=== PATIENT | male | born 1950 | race Hispanic/Latino ===

== ENCOUNTER 2018-09-18 11:19 | Outpatient (CLI) | payer MEDICARE, BC | END 2018-09-18 11:20 | disposition home or self-care (01) | LOC: LAB 11:19 ==

== ENCOUNTER 2018-09-23 12:08 | Inpatient (IN) | payer MEDICARE, BC ==
--- NOTE | 2018-09-23 12:53 | ED PDOC ---
Arrival/HPI - General Chief Complaint: Weakness/Neurological Deficit Historian: Patient - Critical Care Critical Care Minutes: 30 minutes - History of Present Illness Narrative History of Present Illness (Text): 09/23/18 12:40 67 year old male, whose past medical history includes HIV (dx 1991 CD4 1200, undetected Viral Load on medication), presents to the emergency department complaining of right sided weakness that began 18-20 hours ago. Patient states he was at a restaurant last night when he noticed that he was dragging his right foot. He reports he woke up this morning and the symptoms remained unchanged. Patient is having trouble getting words out. He reports he called his PMD who recommended patient to go to the ER for a CT. Patient denies any fever, chills, chest pain, shortness of breath, nausea, vomiting, diarrhea, urinary symptoms, back pain, neck pain, headache, dizziness, or any other complaints. PMD: Dr. Rueda Time/Duration: Other (18-20 hours ago) Symptom Onset: Sudden Symptom Course: Unchanged Activities at Onset: Light Context: Other (restaurant) Past Medical History - Provider Review Nursing Documentation Reviewed: Yes - Infectious Disease Hx of Infectious Diseases: None - Cardiac Hx Cardiac Disorders: No - Neurological Hx Neurological Disorder: No - Genitourinary/Gynecological Hx Genitourinary Disorders: No - Psychiatric Hx Substance Use: No - Anesthesia Hx Anesthesia Reactions: No Family/Social History - Physician Review Nursing Documentation Reviewed: Yes Family/Social History: CVA/TIA (Mother) Smoking Status: Current Some Days Smoker Hx Alcohol Use: Yes Frequency of alcohol use: Socially Hx Substance Use: No Allergies/Home Meds Allergies/Adverse Reactions: Allergies chocolate flavor Allergy (Verified 09/23/18 12:23) RASH food allegies tomato, Allergy (Uncoded 09/23/18 12:23) RASH nuts Allergy (Uncoded 09/23/18 12:23) RASH Home Medications: Home Meds Medication Instructions Recorded Confirmed Unobtainable 09/23/18 09/23/18 Review of Systems - Physician Review All systems were reviewed & negative as marked: Yes - Review of Systems Constitutional: absent: Fevers Respiratory: absent: SOB, Cough Gastrointestinal: absent: Abdominal Pain, Diarrhea, Nausea, Vomiting Genitourinary Male: absent: Dysuria, Frequency, Hematuria Musculoskeletal: absent: Back Pain, Neck Pain Neurological: Focal Weakness (right-sided), Gait Changes, Speech Changes. absent: Headache, Dizziness Physical Exam Vital Signs Reviewed: Yes Vital Signs Temp Pulse Resp Pulse Ox 09/23/18 12:16 97.5 F L 54 L 18 100 Temperature: Afebrile Blood Pressure: Normal Pulse: Bradycardic Respiratory Rate: Normal Appearance: Positive for: Well-Appearing, Non-Toxic, Comfortable Pain Distress: None Mental Status: Positive for: Alert and Oriented X 3 - Systems Exam Head: Present: Atraumatic, Normocephalic Pupils: Present: PERRL Extroacular Muscles: Present: EOMI Conjunctiva: Present: Normal Mouth: Present: Moist Mucous Membranes. No: Other (No thrush in mouth) Neck: Present: Normal Range of Motion Respiratory/Chest: Present: Clear to Auscultation, Good Air Exchange. No: Respiratory Distress, Accessory Muscle Use Cardiovascular: Present: Regular Rate and Rhythm, Normal S1, S2. No: Murmurs Abdomen: No: Tenderness, Distention, Peritoneal Signs Back: Present: Normal Inspection Upper Extremity: Present: Normal Inspection. No: Cyanosis, Edema Lower Extremity: Present: Normal Inspection. 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 No: Rashes Psychiatric: Present: Alert, Oriented x 3, Normal Insight, Normal Concentration Medical Decision Making ED Course and Treatment: 09/23/18 12:40 Impression: 67 year old male presents complaining of right-sided weakness, right sided gait change, and trouble talking that began 18-20 hours ago. Plan: -- Labs -- CTA Head/Neck Code stroke -- CT Head w/o contrast Code stroke -- EKG -- CXR -- IV Fluids -- Reassess and disposition Progress Notes: 09/23/18 12:46 Code stroke called. EXAM: Head CT w/o contrast Dictated by: Thierno Li MD Dictated Date/Time: 09/23/17 1309 IMPRESSION: No acute intracranial abnormalities. No significant findings to account for the clinical presentation. EXAM: CTA Head and Neck Code Stroke Dicatated by: Brigida Vivas MD Dictated Date/Time: 09/23/18 1345 IMPRESSION: 1. No evidence of endoluminal thrombus, occlusion or definite significant stenosis in the intracranial arteries. 2. No evidence of hemodynamically significant stenosis in the internal carotid arteries. 3. Patent bilateral vertebral arteries. 09/23/18 13:28 EKG shows Sinus Bradycardia at 54 BPM with LAD. Interpreted by me. 09/23/18 14:[address] Ford who recommends patient for MRI and Aspirin. Patient is not a candidate for TPA 09/23/18 16:03 Dr. Ford at bedside with patient for consult. He reports that the MRI of the brain without contrast is consistent with a left caudal pontine punctate infarct and diffuse subcortical white matter disease involving the brainstem as well. He ordered Aspirin and Plavix. 09/23/18 16:[address] Peres who is aware and agrees with the plan. Accepts patient into his service. - Critical Care Critical Care Minutes: 30 minutes - Lab Interpretations I have reviewed the lab results: Yes - RAD Interpretation Prospecting Driller: Radiologist - EKG Interpretation Interpreted by ED Physician: Yes Type: 12 lead EKG NIHSS Scale ([place]) Time Performed: 12:40 - How Severe is the Stoke Baseline Level of Consciousness: 0=Alert LOC to Questions: 0=Both comments correct LOC to commands: 0=Obeys both correctly Best Gaze: 0=Normal Visual: 0=No visual loss Facial: 1=Minor asymmetry Motor Arm - Left: 0=No drift Motor Arm - Right: 1=Drift noted before 10 sec Motor Leg - Left: 0=No drift Motor Leg - Right: 0=No drift Limb Ataxia: 0=Absent Sensory: 0=Normal Best Language: 0=No aphasia Dysarthia: 1=Mild to moderate slurring Extinction & Inattention (Neglect): 0=Normal, no object Score: 3 Risk Level: Minor Stroke Risk rTPA Inclusion/Exclusion - Refusal of Treatment Patient Refused Treatment: No - Inclusion Criteria for Altepase Patient is 18 years or Older: Yes The Clinical Diagnosis of Ischemic Stroke That is Causing a Potentially Disabling Neurological Deficit: Yes Time of Onset is Well Established to be Less Than 270 Minute Before Treatment Would Begin: No Risk/Benefit Discussed With Patient/Family Member Present: No - Scribe Statement The provider has reviewed the documentation as recorded by the Nino Paredes Provider Scribe Attestation: All medical record entries made by the Shakiribjed were at my direction and personally dictated by me. I have reviewed the chart and agree that the record accurately reflects my personal performance of the history, physical exam, medical decision making, and the department course for this patient. I have also personally directed, reviewed, and agree with the discharge instructions and disposition. Disposition/Present on Arrival - Present on Arrival Any Indicators Present on Arrival: No History of DVT/PE: No History of Uncontrolled Diabetes: No Urinary Catheter: No History of Decub. Ulcer: No History Surgical Site Infection Following: None - Disposition Have Diagnosis and Disposition been Completed?: Yes Diagnosis: Ischemic stroke Disposition: HOSPITALIZED Disposition Time: 14:00 Patient Problems: Current Active Problems Problem Status Onset Ischemic stroke Acute Condition: GUARDED
[2018-09-23] MEDS ORDERED: Iohexol 350 MG/100 ML VIAL ONE (12:57)
[2018-09-23 13:06] LABS: BASO # 0.05 K/mm3 (0.0-2.0); BASO % 0.8 % (0.0-3.0); EOS % 0.5 % (1.5-5.0); GRAN # 4.04 (1.4-6.5); GRAN % 66.7 % (50.0-68.0); LYMPH # 1.6 (1.2-3.4); LYMPH % 26.2 % (22.0-35.0); MEAN CELL VOLUME 115.8 fl (80.0-105.0); MEAN CORPUSCULAR HEMOGLOBIN 40.1 pg (25.0-35.0); MEAN CORPUSCULAR HGB CONC 34.6 g/dl (31.0-37.0); MEAN PLATELET VOLUME 9.7 fl (7.0-11.0); MONO # 0.4 (0.1-0.6); MONO % 5.8 % (1.0-6.0); RBC 3.74 10^6/uL (3.5-6.1); RED CELL DISTRIBUTION WIDTH 13.7 % (11.5-14.5); WHITE BLOOD COUNT 6.1 10^3/uL (4.5-11.0)
--- NOTE | 2018-09-23 13:13 | CT ---
Date of service: 09/23/2018 PROCEDURE: CT HEAD WITHOUT CONTRAST. HISTORY: Code Stroke - right side weakness COMPARISON: None available. TECHNIQUE: Axial computed tomography images were obtained through the head/brain without intravenous contrast. Supplemental Coronal and Sagittal projections created and reviewed. Radiation dose: Total exam DLP = 901.59 mGy-cm. This CT exam was performed using one or more of the following dose reduction techniques: Automated exposure control, adjustment of the mA and/or kV according to patient size, and/or use of iterative reconstruction technique. FINDINGS: HEMORRHAGE: No intracranial hemorrhage. BRAIN: No mass effect or edema. No atrophy or chronic microvascular ischemic changes. Prominent white matter common nonspecific finding but can be seen with demyelinating disease. VENTRICLES: Unremarkable. No hydrocephalus. CALVARIUM: Unremarkable. PARANASAL SINUSES: Unremarkable as visualized. No significant inflammatory changes. MASTOID AIR CELLS: Unremarkable as visualized. No inflammatory changes. OTHER FINDINGS: None. IMPRESSION: No acute intracranial abnormalities. No significant findings to account for the clinical presentation. Code stroke protocol: Study completed 12:59. Radiologist notified 13:03. Results conveyed verbally at 13:09. Interpretation finalized and available for review 13:10.
[2018-09-23 13:15] LABS: INR 1.14; PARTIAL THROMBOPLASTIN TIME 27.5 Seconds (25.1-36.5); PROTHROMBIN TIME 13.2 SECONDS (9.4-12.5)
[2018-09-23] MEDS: Sodium Chloride 0.9% 1,000 ML IV SCH (13:17)
[2018-09-23 13:18] LABS: ALB/GLOB RATIO 1.7 (1.1-1.8); ALBUMIN 4.1 g/dL (3.0-4.8); ALT/SGPT 39 U/L (7-56); AST/SGOT 29 U/L (17-59); BLOOD UREA NITROGEN 22 mg/dL (7-21); CALCIUM 9.6 mg/dL (8.4-10.5); GFR NON-AFRICAN AMERICAN > 60; HDL CHOLESTEROL 51 mg/dL (29-60)
[2018-09-23 13:30] LABS: LDL CHOLESTEROL 68 mg/dL (0-129)
[2018-09-23 13:32] LABS: TROPONIN I < 0.01 ng/mL
--- NOTE | 2018-09-23 13:49 | CT ---
Date of service: 09/23/2018 PROCEDURE: CTA HEAD AND NECK WITH CONTRAST HISTORY: right sided weakness COMPARISON: None available. TECHNIQUE: Initial noncontrast head CT was performed. Subsequently, CT angiogram of the head and neck were performed after the intravenous administration of 80 mL of Omnipaque 350. Contiguous 1.5mm thick images were obtained in the axial plane of the neck. 2-D coronal and sagittal MPR images were obtained. Imaging postprocessing was performed with 3-D images also obtained. A delayed contrast head CT was also obtained. This CT exam was performed using one or more of the following dose reduction techniques: Automated exposure control, adjustment of the mA and/or kV according to patient size, and/or use of iterative reconstruction technique. Contrast dose: 100 mL Omnipaque Radiation dose: Total exam DLP = 629.80 mGy-cm. FINDINGS: HEAD: Right: The intracranial internal carotid artery, and anterior and middle cerebral arteries are widely patent. Left: 300 The intracranial internal carotid artery, and anterior and middle cerebral arteries are widely patent. Posterior circulation: The visualized intracranial vertebral arteries, basilar artery and posterior cerebral arteries are widely patent. There is origin of the right posterior cerebral artery, an anatomic variant with There is no endoluminal filling defect to suggest thrombus. There is no intracranial saccular aneurysm. NECK: There is a three vessel aortic arch. There is no stenosis at the origins of the great vessels at the level of the aortic arch. No atherosclerotic calcification or mural plaque present. Right Carotid: On the right, the common carotid, internal carotid and external carotid arteries are widely patent. There is no hemodynamically significant stenosis in the internal carotid artery by NASCET criteria. Left Carotid: On the left, the common carotid, internal carotid and external carotid arteries are widely patent. There is no hemodynamically significant stenosis in the internal carotid artery by NASCET criteria. The vertebral arteries are widely patent. The right vertebral artery is hypoplastic, an anatomic variant. The visualized soft tissues of the neck are normal. The visualized brain and cervical spine are within normal limits. Centrilobular emphysema in the visualized lungs. Multinodular thyroid gland. Chronic left maxillary sinusitis and left maxillary atelectatic sinus syndrome. IMPRESSION: 1. No evidence of endoluminal thrombus,occlusion or definite significant stenosis in the intracranial arteries. 2. No evidence of hemodynamically significant stenosis in the internal carotid arteries. 3. Patent bilateral vertebral arteries.
--- NOTE | 2018-09-23 15:55 | CP.PCM.CON ---
History of Present Illness - History of Present Illness History of Present Illness: Neurology Consultation Note: Mr. Kelly is a 67-year-old man with a past medical history of HIV, who was at a restaurant yesterday and noticed that he had some right side weakness. He did not come to the ED till today and states that he continues to feel subjectively weaker on the right and was noted to have some speech difficulty. CT scan of the head did not show any acute findings, but there was significant chronic ischemic changes. CTA of the head/neck did not show any LVO. MRI of the brain without contrast is consistent with a left caudal pontine punctate infarct and diffuse subcortical white matter disease involving the brainstem as well. Review of Systems - Constitutional Constitutional: As Per HPI - EENT Eyes: absent: As Per HPI, Blind Spots, Blurred Vision, Change in Vision, Decreased Night Vision, Diplopia, Discharge, Dry Eye, Exophthalmos, Floaters, Irritation, Itchy Eyes, Loss of Peripheral Vision, Pain, Photophobia, Requires Corrective Lenses, Sees Flashes, Spots in Vision, Tunnel Vision, Other Visual Disturbances, Loss of Vision, Other Ears: absent: As Per HPI, Decreased Hearing, Ear Discharge, Ear Pain, Tinnitus, Abnormal Hearing, Disequilibrium, Dizziness, Other Nose/Mouth/Throat: absent: As Per HPI, Epistaxis, Nasal Congestion, Nasal Dis charge, Nasal Obstruction, Nasal Trauma, Nose Pain, Post Nasal Drip, Sinus Pain, Sinus Pressure, Bleeding Gums, Change in Voice, Dental Pain, Dry Mouth, Dysphagia, Halitosis, Hoarsness, Lip Swelling, Mouth Lesions, Mouth Pain, Odynophagia, Sore Throat, Throat Swelling, Tongue Swelling, Facial Pain, Neck Pain, Neck Mass, Other - Cardiovascular Cardiovascular: absent: As Per HPI, Acrocyanosis, Chest Pain, Chest Pain at Rest, Chest Pain with Activity, Claudication, Diaphoresis, Dyspnea, Dyspnea on Exertion, Edema, Irregular Heart Rhythm, Pain Radiating to Arm/Neck/Jaw, Leg Edema, Leg Ulcers, Lightheadedness, Orthopnea, Palpitations, Paroxysmal Nocturnal Dyspnea, Pedal Edema, Radiating Pain, Rapid Heart Rate, Slow Heart Rate, Syncope, Other - Respiratory Respiratory: absent: As Per HPI, Cough, Dyspnea, Hemoptysis, Dyspnea on Exertion, Wheezing, Snoring, Stridor, Pain on Inspiration, Chest Congestion, Excessive Mucous Production, Change in Mucous Color, Pain with Coughing, Other - Gastrointestinal Gastrointestinal: absent: As Per HPI, Abdominal Pain, Belching, Bloating, Change in Bowel Habits, Change in Stool Character, Coffee Ground Emesis, Constipation, Cramping, Diarrhea, Dyspepsia, Dysphagia, Early Satiety, Excessive Flatus, Fecal Incontinence, Heartburn, Hematemesis, Hematochezia, Loose Stools, Melena, Nausea, Odynophagia, Temesmus, Vomiting, Other - Genitourinary Genitourinary: absent: As Per HPI, Change in Urinary Stream, Difficulty Urinating, Dysuria, Flank Pain, Hematuria, Pyuria, Nocturia, Urinary Incontinence, Urinary Frequency, Urinary Hesitance, Urinary Urgency, Voiding Freq/Small Amts, Freq UTI, Hx Renal/Bladder Calculi, Hx /Renal Surgery, Bladder Distension, Other - Musculoskeletal Musculoskeletal: absent: As Per HPI, Abnormal Gait, Arthralgias, Atrophy, Back Pain, Deformity, Joint Swelling, Limited Range of Motion, Loss of Height, Muscle Cramps, Muscle Weakness, Myalgias, Neck Pain, Numbness, Radiating Pain into Limb, Stiffness, Tingling, Other - Neurological Neurological: As Per HPI - Psychiatric Psychiatric: absent: As Per HPI, Abnormal Sleep Pattern, Anhedonia, Anxiety, Auditory Hallucinations, Behavioral Changes, Change in Appetite, Change in Libido, Confusion, Depression, Difficulty Concentrating, Hallucinations, Homicidal Ideation, Hopelessness, Irritability, Memory Loss, Mood Swings, Panic Attacks, Paranoia, Suicidal Ideation, Visual Hallucinations, Tactile Halluci nations, Other - Endocrine Endocrine: absent: As Per HPI, Change in Body Appearance, Change in Libido, Cold Intolorance, Deepening of Voice, Excessive Sweating, Fatigue, Flushing, Heat Intolorance, Increase in Ring/Shoe/Hat Size, Palpitations, Polydipsia, Polyp hagia, Polyuria, Other - Hematologic/Lymphatic Hematologic: absent: As Per HPI, Easy Bleeding, Easy Bruising, Lymphadenopathy, Other Past Patient History - Infectious Disease Hx of Infectious Diseases: None - Past Social History Smoking Status: Current Some Days Smoker - CARDIAC Hx Cardiac Disorders: No - NEUROLOGICAL Hx Neurological Disorder: No - HEMATOLOGICAL/ONCOLOGICAL Hx Human Immunodeficiency Virus (HIV): Yes - GENITOURINARY/GYNECOLOGICAL Hx Genitourinary Disorders: No - PSYCHIATRIC Hx Substance Use: No - ANESTHESIA Hx Anesthesia Reactions: No Meds Allergies/Adverse Reactions: Allergies Allergy/AdvReac Type Severity Reaction Status Date / Time chocolate flavor Allergy RASH Verified 09/23/18 12:23 food allegies tomato, Allergy RASH Uncoded 09/23/18 12:23 nuts Allergy RASH Uncoded 09/23/18 12:23 - Medications Medications: Current Medications Aspirin (Ecotrin) 81 mg PO STAT STA Stop: 09/23/18 15:49 Sodium Chloride (Sodium Chloride 0.9%) 1,000 mls @ 100 mls/hr IV .Q10H DAPHNEY Last Admin: 09/23/18 13:17 Dose: 100 mls/hr Physical Exam - Constitutional Appears: Well - Head Exam Head Exam: ATRAUMATIC, NORMAL INSPECTION, NORMOCEPHALIC - Eye Exam Eye Exam: EOMI, Normal appearance, PERRL Pupil Exam: NORMAL ACCOMODATION, PERRL - ENT Exam ENT Exam: Mucous Membranes Moist, Normal Exam - Neck Exam Neck exam: Positive for: Normal Inspection - Respiratory Exam Respiratory Exam: Clear to Auscultation Bilateral, NORMAL BREATHING PATTERN - Cardiovascular Exam Cardiovascular Exam: REGULAR RHYTHM, +S1, +S2 - GI/Abdominal Exam GI & Abdominal Exam: Normal Bowel Sounds, Soft. absent: Tenderness - Rectal Exam Rectal Exam: Deferred - Extremities Exam Extremities exam: Positive for: normal inspection - Back Exam Back exam: NORMAL INSPECTION - Neurological Exam Neurological exam: Abnormal Gait, Alert, CN II-XII Intact, Oriented x3 Additional comments: Speech is dysarthric, right facial droop noted, right arm pronator drift noted, right leg slightly weaker than left. Sensation is intact throughout. Reflexes are brisk on the right. NIHSS = 3 - Psychiatric Exam Psychiatric exam: Normal Affect, Normal Mood - Skin Skin Exam: Dry, Intact, Normal Color, Warm Results - Vital Signs Recent Vital Signs: Last Vital Signs Temp 97.5 F L 09/23/18 12:16 Pulse 83 09/23/18 14:51 Resp 18 09/23/18 14:51 BP 126/75 09/23/18 14:51 Pulse Ox 98 09/23/18 14:51 - Labs Result Diagrams: 09/23/18 12:50 09/23/18 12:50 Labs: Laboratory Results - last 24 hr 01/08/3009/23/18 09/23/18 12:50 12:50 12:50 WBC 6.1 RBC 3.74 Hgb 15.0 Hct 43.3 MCV 115.8 H MCH 40.1 H MCHC 34.6 RDW 13.7 Plt Count 203 MPV 9.7 Gran % 66.7 Lymph % (Auto) 26.2 Butts % (Auto) 5.8 Eos % (Auto) 0.5 L Baso % (Auto) 0.8 Gran # 4.04 Lymph # (Auto) 1.6 Butts # (Auto) 0.4 Eos # (Auto) 0.0 Baso # (Auto) 0.05 PT 13.2 H INR 1.14 APTT 27.5 Sodium 142 Potassium 4.6 Chloride 109 H Carbon Dioxide 29 Anion Gap 9 L BUN 22 H Creatinine 0.7 L Est GFR ( Amer) > 60 Est GFR (Non-Af Amer) > 60 POC Glucose (mg/dL) Random Glucose 102 Calcium 9.6 Total Bilirubin 0.8 AST 29 ALT 39 Alkaline Phosphatase 102 Troponin I < 0.01 Total Protein 6.5 Albumin 4.1 Globulin 2.4 Albumin/Globulin Ratio 1.7 Triglycerides 110 Cholesterol 147 LDL Cholesterol Direct 68 HDL Cholesterol 51 Blood Type Antibody Screen BBK History Checked 09/23/18 09/23/18 12:51 13:22 WBC RBC Hgb Hct MCV MCH MCHC RDW Plt Count MPV Gran % Lymph % (Auto) Butts % (Auto) Eos % (Auto) Baso % (Auto) Gran # Lymph # (Auto) Butts # (Auto) Eos # (Auto) Baso # (Auto) PT INR APTT Sodium Potassium Chloride Carbon Dioxide Anion Gap BUN Creatinine Est GFR ( Amer) Est GFR (Non-Af Amer) POC Glucose (mg/dL) 90 Random Glucose Calcium Total Bilirubin AST ALT Alkaline Phosphatase Troponin I Total Protein Albumin Globulin Albumin/Globulin Ratio Triglycerides Cholesterol LDL Cholesterol Direct HDL Cholesterol Blood Type A POSITIVE Antibody Screen Negative BBK History Checked No verified bt Assessment & Plan (1) Ischemic stroke Assessment and Plan: The patient is not a candidate for IV tPA due to being well outside the 4.5 hour time window. He will require admission for further work-up and management. I recommend the followin. Telemetry 2. Echocardiogram 3. Carotid Dopplers 4. Aspirin 81 mg now, Plavix 300 mg now; and, continue aspirin 81 mg daily and Plavix 75 mg daily for 21 days, then continue only Aspirin 81 mg indefinitely, Lipitor 40 mg daily 5. Fluids with NS at 100 ml/hr 6. Permissive HTN (only treat BP higher than 220/110 mm Hg for the next 24 hours) 7. PT/OT eval and treatment 8. Check HbA1c, lipid panel, B12, folate, TSH, T3/4, homocysteine level, ESR, C RP, vitamin D level 9. Risk factor modification 10. Case management consult Thank you for this consultation. Status: Acute
--- NOTE | 2018-09-23 16:07 | RAD ---
Date of service: 09/23/2018 HISTORY: Code Stroke COMPARISON: 09/18/2018. FINDINGS: LUNGS: No active pulmonary disease. PLEURA: No significant pleural effusion identified, no pneumothorax apparent. CARDIOVASCULAR: No atherosclerotic calcification present Normal. OSSEOUS STRUCTURES: No significant abnormalities. VISUALIZED UPPER ABDOMEN: Normal. OTHER FINDINGS: None. IMPRESSION: No active disease. No significant interval change compared to the prior examination(s).
--- NOTE | 2018-09-23 16:53 | MRI ---
Date of service: 09/23/2018 PROCEDURE: MRI BRAIN WITHOUT CONTRAST HISTORY: right-sided weakness - LE>UE COMPARISON: None available. TECHNIQUE: Multiplanar, multisequence MR images of the brain were obtained without intravenous contrast enhancement. FINDINGS: HEMORRHAGE: None DWI: A punctate acute or subacute infarct is identified at the inferior left dustin. No lobar brain infarction appreciated throughout the brain nevertheless. BRAIN PARENCHYMA: Good corticomedullary differentiation is seen. Proportional, diffuse expansion of the ventriculosulcal and cisternal spaces is appreciated with expansive white matter lucency compatible with diffuse cerebral atrophy and gross chronic microangiopathy. Microangiopathy reveals relatively prominent at the dustin as well. No suspicious extra-axial fluid collection is identified and the midline brain anatomy appears grossly nonfocal as imaged. There is no mass effect throughout. VENTRICLES: Unremarkable. No hydrocephalus. CRANIUM: Unremarkable. ORBITS: Grossly unremarkable. PARANASAL SINUSES/MASTOIDS: Clear VASCULAR SYSTEM: Skull base flow voids intact. OTHER FINDINGS: None. IMPRESSION: A small acute or subacute infarct in the left cortical spinal tracts of the inferior dustin identified accounting for the patient's right sided weakness. No lobar brain infarction appreciable. Advanced age related neuro degenerative findings including for the patient's stated age of 67 years.
--- NOTE | 2018-09-23 20:27 | CARD ---
APPROVED REPORT Date of service: 09/23/2018 EKG Measurement Heart [id number] <Conclusion> Sinus bradycardia Otherwise normal ECG
[2018-09-23 22:35] VITALS: BMI 20.5
[2018-09-23] MEDS ORDERED: Pneumococcal 23-Valent Vaccine IM ONE (22:35)
[2018-09-23] MEDS ORDERED: Influenza Vaccine 60 mcg/0.5 mL SYR (4YR UP) IM ONE (22:35)
[2018-09-24] MEDS: Sodium Chloride 0.9% 1,000 ML IV SCH ×4 (05:26→20:54)
--- NOTE | 2018-09-24 12:08 | PCM.STROKE ---
Interval History Stroke Date: 09/22/18 - Treatment Antiplatelet: Acetylsalicylic acid (ASA), Plavix - Education Written Stroke Education provided regarding: personal risk factors, stroke warning sign/symptoms, how to activate emergency medical services, need to follow up after discharge Hx Atrial Fibrillation: No Hx Atrial Flutter: No NIHSS Stroke Scale - Date/Time Evaluation Performed Date Performed: 09/23/18 Time Performed: 19:23 When Was NIHSS Performed: Re-evaluation - How Severe is the Stroke Level of Consciousness: 0=Alert LOC to Questions: 0=Both comments correct LOC to commands: 0=Obeys both correctly Best Gaze: 0=Normal Visual: 0=No visual loss Facial: 1=Minor asymmetry Motor Arm - Left: 1=Drift noted before 10 sec Motor Arm - Right: 0=No drift Motor Leg - Left: 0=No drift Motor Leg - Right: 0=No drift Limb Ataxia: 0=Absent Sensory: 0=Normal Best Language: 0=No aphasia Dysarthia: 1=Mild to moderate slurring Extinction & Inattention (Neglect): 0=Normal, no object Score: 3 Exam - Vital Sign Vital Signs: Temp Pulse Resp BP Pulse Ox 97.7 F 58 L 19 134/81 97 09/24/18 05:53 09/24/18 05:53 09/24/18 05:53 09/24/18 05:53 09/24/18 05:53 Constitutional: No distress Ophthalmoscopic: absent: papilledema, hemorrhage Right Pupil: Reactive Left Pupil: Reactive Cardiovascular: Regular rate & rhythm Mental Status: Normal: Orientation, Memory, Attention, Language Cranial Nerve: Normal: Visual Eastman, Extraocular movement intact, Facial Sensation, Facial Strength, Hearing, Palate/Tongue Movement, Shoulder Strength Motor: Tone, Bulk Neuro motor strength exam: Left Upper Extremity: 4, Right Upper Extremity: 5, Left Lower Extremity: 4, Right Lower Extremity: 5 Sensation: Intact to pin, Vibration DTR: Achilles Tendon Left: 2+, Achilles Tendon Right: 2+, Bicep Left: 2+, Bicep Right: 2+, Brachioradialis Left: 2+, Brachioradialis Right: 2+, Patellar Left: 2+, Patellar Right: 2+, Tricep Left: 2+, Tricep Right: 2+ Flexor Plantar Reflex: Normal Coordination: Finger/nose, Heel/[place] Gait: Normal with Absent Rhomberg Vascular Risk: Hypertension, Age, Smoking - Data reviewed Laboratory results: 09/23/18 12:50 09/23/18 12:50 Triglycerides 110 mg/dL (35-160) 09/23/18 12:50 Cholesterol 147 mg/dL (130-200) 09/23/18 12:50 LDL Cholesterol Direct 68 mg/dL (0-129) 09/23/18 12:50 HDL Cholesterol 51 mg/dL (29-60) 09/23/18 12:50 Hemoglobin A1c 4.9 % (4.2-6.5) 09/23/18 12:50 CT Scan: Viewed and interpreted by me MRI images: Viewed and interpreted by me MRA/CTA images: Viewed and interpreted by me Assessment and Plan (1) Ischemic stroke Assessment & Plan: Will continue aspirin/plavix for 21 days, then continue only aspirin 81 mg daily along with lipitor 40 mg daily. Smoking cessation was discussed. If cleared by PT, the patient can follow up with outpatient neurology and primary care. Status: Acute
--- NOTE | 2018-09-25 00:21 | HP ---
DATE OF EXAM: 09/24/2018 The patient came in because has some right-sided weakness in his leg. HISTORY OF PRESENT ILLNESS: A 67-year-old male with history of HIV. He is being controlled on medication, came in today with sudden onset of some right leg weakness since morning it was more than 3 hours timing with speech difficulty and right-sided weakness. The patient was evaluated. He did have a CT of the head, which shows no bleeding. There was chronic ischemic changes; however, the CTA of the head and neck was negative also. MRI shows consistent left pontine infarction with diffuse subcortical white matter disease involving the brain stem. ALLERGIES: THE PATIENT IS ALLERGIC TO CHOCOLATE, EGG. FOOD ALLERGIES ARE NUTS AND TOMATOES. MEDICATIONS: He takes HIV medication that is being given by his Infectious Disease specialist. FAMILY HISTORY: Noncontributory. SOCIAL HISTORY: He lives by himself. He smokes 1 pack of cigarette from 50 years and he does not want to quit. He drink 1 or 2 glasses of red wine everyday. PHYSICAL EXAMINATION GENERAL: The patient is lying in bed. He is alert, awake, and oriented x3. Seems moving all extremities. He started drinking some liquids with no difficulties. VITAL SIGNS: As follows. Temperature 97.1, heart rate 58, blood pressure 130/91, respirations 20. HEAD AND NECK: Normal. No JVD. No thyromegaly. CHEST: Clear bilaterally. CARDIAC: First sound and second sound normal. No murmur, rubs or gallop. ABDOMEN: Soft and nontender. NEUROLOGIC: There is no weakness except the patient complained of right-sided weakness. His speech is little bit muffled. LABORATORY DATA: White count 6.1, hemoglobin 16, hematocrit 43.3, and platelets 203. Chemistry: Sodium 142, potassium 4.6, chloride 109, bicarb 29, BUN is 22, creatinine 0.7. Liver function test is normal. Troponin is negative. Triglycerides 110, cholesterol 147, LDL 68, HDL 51. The patient also had a C-reactive protein, which is less than 5. Hemoglobin A1c 4.9. IMPRESSION AND PLAN: 1. Acute cerebrovascular accident, acute infarction from pontine infarctions, seen by Dr. Yovani Ford, who recommended giving aspirin, Plavix 300 followed by 75 mg daily. We will continue that regimen. We will follow up with him. 2. The patient is a heavy smoker from years and need to be evaluated for that and I did recommend to stop smoking because the risk of stroke, recurrent stroke is high, but he does not want, so we will give a Nicoderm patch at least in the hospital and we will follow up with the patient if he agrees to discontinue smoking as an outpatient. 3. The patient does have a history of drinking alcohol 1 or 2 a day in a week. He usually 11 to 14 drinks, but he never had any withdrawal symptoms. We will monitor his mental status, any withdrawal symptoms. We are going to him thiamine and we will follow up clinically. 4. Human immunodeficiency virus. We will get Infectious Disease consult, Dr. Marie to follow up with that. We are not going to give any medicine at this time and we will continue to follow. The patient is also going to get physical therapy. Continue gastrointestinal and deep venous thrombosis prophylaxis. Reilly Peres MD
[2018-09-25] MEDS: Sodium Chloride 0.9% 1,000 ML IV SCH (05:36)
[2018-09-25 05:48] VITALS: O2SAT 97
--- NOTE | 2018-09-25 09:06 | CON ---
DATE: 09/24/2018 HISTORY OF PRESENT ILLNESS: This is 67-year-old male with positive HIV since 1990 with good T cells of over 1000, undetectable, followed by Dr. Ismael Rueda with [facility] who has seen Dr. Rueda with complaint of right-sided weakness and the patient because he lives in [place], was advised to come to the [place] [facility] by Dr. Rueda for further evaluation. Dr. Purvis had seen the patient in the emergency room and the patient had MRI of the brain which revealed the left caudal pontine punctate infarct corresponding to patient's slurred speech and right-sided weakness and the patient with positive HIV. The patient denies any fevers and chills at home and the patient was perfectly fine until this episode. No headaches. No abdominal pain, diarrhea or constipation. PAST MEDICAL HISTORY: The patient has had past medical history of positive HIV since 1990. He takes 3 different medications, he cannot remember the name of the medications at this time for his HIV, has been compliant with his medication. SOCIAL HISTORY: He is retired. He lives with his significant partner and there has been no exposure. No travel. No tuberculosis. He has had some poor dentition issues and following a dentist and he continues to actively smoke. PHYSICAL EXAMINATION: VITAL SIGNS: The patient is in bed with a temperature of 98, blood pressure is 105/60, respiratory rate of 19 and heart rate of 54. HEENT: Unremarkable. There is a cavity in one tooth. NECK: Supple. LUNGS: Decreased breath sounds. HEART: Normal S1 and S2. ABDOMEN: Soft and nontender. LABORATORY EXAMINATION: Reveals a white count of 6.1 and hemoglobin of 15, sed rate 5. Coagulation is noted. Chemistries are noted. Creatinine is normal. C-reactive protein is less than 5. Microbiology is pending and MRI is noted. Chest x-ray is reported to be negative. ASSESSMENT AND PLAN: This is a 67-year-old who on exam does have 4/5 in the right extremities, left extremities 5/5. There is slurred speech. 1. Positive human immunodeficiency virus with a patient with an acute left caudal pontine punctate infarct and recommend to continue taking his human immunodeficiency virus medications. I doubt this to be related to human immunodeficiency virus since his viral load has been undetectable with good T-cells as per my discussion with Dr. Ismael Rueda and I ordered blood cultures. I doubt endocarditis; however, he does have poor dentition and the presentation is acute. He did not have any fevers at home; however, we will check on the blood cultures. We will check on her RPR and an FTA and we will make further recommendations and we will follow closely with you. Henok Marie MD
[2018-09-25 11:55] VITALS: BP 133/87; PULSE 63; RESP 18; TEMP 97.8
--- NOTE | 2018-09-25 13:27 | CP.PCM.APN ---
Subjective - Date & Time of Evaluation Date of Evaluation: 09/25/18 Time of Evaluation: 09:15 - Subjective Subjective: pt seenand examined at bedside pt in NAD Pt reports right sided weakness continues but improvement from initial presentation Review of Systems - Constitutional Constitutional: Weakness. absent: As Per HPI, Anorexia, Chills, Daytime Sleepiness, Excessive Sweating, Fatigue, Fever, Frequent Falls, Headache, Increased Appetite, Lethargy, Malaise, Night Sweats, Snoring, Sleep Apnea, Weight Gain, Weight Loss, Other Additional comments: right side - EENT Eyes: absent: As Per HPI, Blind Spots, Blurred Vision, Change in Vision, Decreased Night Vision, Diplopia, Discharge, Dry Eye, Exophthalmos, Floaters, Irritation, Itchy Eyes, Loss of Peripheral Vision, Pain, Photophobia, Requires Corrective Lenses, Sees Flashes, Spots in Vision, Tunnel Vision, Other Visual Disturbances, Loss of Vision, Other Nose/Mouth/Throat: absent: As Per HPI, Epistaxis, Nasal Congestion, Nasal Disch arge, Nasal Obstruction, Nasal Trauma, Nose Pain, Post Nasal Drip, Sinus Pain, Sinus Pressure, Bleeding Gums, Change in Voice, Dental Pain, Dry Mouth, Dysphagia, Halitosis, Hoarsness, Lip Swelling, Mouth Lesions, Mouth Pain, Odynophagia, Sore Throat, Throat Swelling, Tongue Swelling, Facial Pain, Neck Pain, Neck Mass, Other - Musculoskeletal Musculoskeletal: Abnormal Gait Objective - Vital Signs/Intake and Output Vital Signs (last 24 hours): Temp Pulse Resp BP Pulse Ox 97.8 F 63 18 133/87 97 09/25/18 11:54 09/25/18 11:54 09/25/18 11:54 09/25/18 11:54 09/25/18 10:00 Intake and Output: 09/25/18 09/25/18 06:59 18:59 Intake Total 1400 Output Total 1300 Balance 100 - Medications Medications: Current Medications Aspirin (Ecotrin) 81 mg PO DAILY [facility] Last Admin: 09/25/18 09:51 Dose: 81 mg Atorvastatin Calcium (Lipitor) 40 mg PO DIN [facility] Last Admin: 09/24/18 17:36 Dose: 40 mg Clopidogrel Bisulfate (Plavix) 75 mg PO DAILY [facility] Last Admin: 09/25/18 09:51 Dose: 75 mg Heparin Sodium (Porcine) (Heparin) 5,000 units SC Q12 DAPHNEY; Protocol Last Admin: 09/25/18 09:51 Dose: 5,000 units Sodium Chloride (Sodium Chloride 0.9%) 1,000 mls @ 100 mls/hr IV .Q10H [facility]APH[facility] Last Admin: 09/25/18 05:36 Dose: 100 mls/hr Nicotine (Nicoderm Cq) 1 patch TD DAILY [facility] Last Admin: 09/25/18 09:51 Dose: 1 patch - Labs Labs: 09/23/18 12:50 09/23/18 12:50 PT 13.2 SECONDS (9.4-12.5) H 09/23/18 12:50 INR 1.14 09/23/18 12:50 APTT 27.5 Seconds (25.1-36.5) 09/23/18 12:50 - Constitutional Appears: No Acute Distress - Eye Exam Pupil Exam: NORMAL ACCOMODATION, PERRL - ENT Exam ENT Exam: Mucous Membranes Moist - Neck Exam Neck Exam: Full ROM - Respiratory Exam Respiratory Exam: Clear to Ausculation Bilateral, NORMAL BREATHING PATTERN - Cardiovascular Exam Cardiovascular Exam: REGULAR RHYTHM, +S1, +S2 - GI/Abdominal Exam GI & Abdominal Exam: Soft, Normal Bowel Sounds - Extremities Exam Extremities Exam: Normal Capillary Refill - Neurological Exam Neurological Exam: Abnormal Gait (right sided weakness upper and right lower ext ), Alert, Awake - Skin Skin Exam: Dry, Intact Assessment and Plan - Assessment and Plan (Free Text) Plan: ITS Impressions Chest X-Ray 09/23/18 12:50 IMPRESSION: No active disease. No significant interval change compared to the prior examination(s). Head CT 09/23/18 12:50 IMPRESSION: No acute intracranial abnormalities. No significant findings to account for the clinical presentation. Code stroke protocol: Study completed 12:59. Radiologist notified 13:03. Results conveyed verbally at 13:09. Interpretation finalized and available for review 13:10. Head/Neck CTA 09/23/18 12:51 IMPRESSION: 1. No evidence of endoluminal thrombus,occlusion or definite significant stenosis in the intracranial arteries. 2. No evidence of hemodynamically significant stenosis in the internal carotid arteries. 3. Patent bilateral vertebral arteries. Brain MRI 09/23/18 14:11 IMPRESSION: A small acute or subacute infarct in the left cortical spinal tracts of the inferior dustin identified accounting for the patient's right sided weakness. No lobar brain infarction appreciable. Advanced age related neuro degenerative findings including for the patient's stated age of 67 years. 67 yr old white male with pmh sig for smoking and HIV positive presented to ER with right sided weakness 18 to 20 hrs after initial symptoms began. Pt was a code stroke In ER and workup revealed a positive MRi with small acute or subacute infarct in the left cortical spinal tracts of the inferior dustin for which pt was admitted and undergoing neuro eval and treatment. acute cva aspirin , statin, antiplatelet therapy withj plavix neuro consultation and recs noted p>T eval recs - outpt pt Smoker nicotine patch in place smoking cessation encourage Hx hIV ID consultation noted RPR nonreactive Discuss plan with PMD RX given for outpt p.t services BPCI/TIC - BPCIA/TIC Educated pt/family on BPCIA/CIR/Med to Bed Programs: N/A Flyers given, including [facility] Beneficiary letter: N/A Pt/family verbalized understanding & agreed to program: N/A
--- NOTE | 2018-09-25 17:09 | CP.PCM.PN ---
Subjective - Date & Time of Evaluation Date of Evaluation: 09/25/18 Time of Evaluation: 10:25 - Subjective Subjective: No headache, able to walk well, no fevers, no confusion. Objective - Vital Signs/Intake and Output Vital Signs (last 24 hours): Temp Pulse Resp BP Pulse Ox 97.8 F 63 18 133/87 97 09/25/18 11:54 09/25/18 11:54 09/25/18 11:54 09/25/18 11:54 09/25/18 10:00 Intake and Output: 09/25/18 09/25/18 06:59 18:59 Intake Total 1400 600 Output Total 1300 Balance 100 600 - Labs Labs: 09/23/18 12:50 09/23/18 12:50 PT 13.2 SECONDS (9.4-12.5) H 09/23/18 12:50 INR 1.14 09/23/18 12:50 APTT 27.5 Seconds (25.1-36.5) 09/23/18 12:50 - Constitutional Appears: No Acute Distress, Chronically Ill - Head Exam Head Exam: NORMAL INSPECTION - Respiratory Exam Respiratory Exam: Decreased Breath Sounds. absent: Rales - Cardiovascular Exam Cardiovascular Exam: +S1, +S2 - GI/Abdominal Exam GI & Abdominal Exam: Soft. absent: Tenderness Assessment and Plan - Assessment and Plan (Free Text) Plan: Assessment chronic HIV infection ,well-controlled and compliant with cART acute left caudal punctate pontine infarct Plan continue cART and patient is to follow up with regular HIV care provider follow up further recommendations of Neurology
== END 2018-09-25 16:57 | disposition home health service (06) | DRG 65 ==
LOC: ED 12:08 → ERH 16:46 → 2RNO 18:17
PROVIDERS: ADMIT Internal Medicine; ATTEND Internal Medicine
DX: I63.9 Cerebral infarction, unspecified (principal); B20 Human immunodeficiency virus [HIV] disease; F17.210 Nicotine dependence, cigarettes, uncomplicated; I10 Essential (primary) hypertension; Z79.02 Long term (current) use of antithrombotics/antiplatelets; Z79.82 Long term (current) use of aspirin; Z79.899 Other long term (current) drug therapy